=== PATIENT | male | born 1980 | race Caucasian/White ===

== ENCOUNTER 2017-06-27 12:45 | Emergency (ER) | payer OTHER ==
[2017-06-27 13:04] VITALS: BP 132/72; PULSE 89; RESP 20; TEMP 98.1; O2SAT 98
[2017-06-27] MEDS ORDERED: LIDOCAINE HCL 1% 50 ML VIAL INFIL ONE (13:15)
[2017-06-27] MEDS ORDERED: CEPH-460 PO (13:37)
[2017-06-27] MEDS ORDERED: BACT800T5 PO (13:37)
[2017-06-27] MEDS ORDERED: HYDR-3533 PO (13:37)
[2017-06-27] MEDS ORDERED: DICL75TA PO (13:37)
--- NOTE | 2017-06-27 13:43 | PD ---
HPI Chief Complaint: Skin Problem Time Seen by Provider: 13:02 Travel History International Travel<30 days: No Contact w/Intl Traveler<30days: No Traveled to known affect area: No History of Present Illness HPI 37-year-old male that presents to the ED for evaluation of abscess to the right arm. Per patient she's had this for a couple of weeks now. Per patient he try some Keflex for 3 days with no relief. Per patient is getting bigger. He comes here as his son is also being seen for a different complaint. Patient states that the pain is 6 out of 10. Patient states that he's had this before. No other medical issues. No allergies to medication. No history of MRSA. No IV drug abuse. No fevers chills or sweats. PFSH Social History Alcohol Use: No Tobacco Use: No Substance Use: No Allergies-Medications (Allergen,Severity, Reaction): Coded Allergies: No Known Allergies (Unverified , 06/27/17) Reported Meds & Prescriptions Reported Meds & Active Scripts Active Keflex (Cephalexin) 500 Mg Cap 500 Mg PO Q8H 10 Days Bactrim DS (Sulfamethoxazole-Trimethoprim) 800-160 Mg Tab 1 Tab PO BID Diclofenac Sodium DR (Diclofenac Sodium) 75 Mg Tabdr 75 Mg PO BID PRN Lortab (Hydrocodone-Acetaminophen) 5-325 Mg Tab 1 Tab PO Q6H PRN 10 Days Review of Systems Except as stated in HPI: all other systems reviewed are Neg Physical Exam Narrative GENERAL: SKIN: Warm and dry. HEAD: Atraumatic. Normocephalic. EYES: Pupils equal and round. No scleral icterus. No injection or drainage. ENT: No nasal bleeding or discharge. Mucous membranes pink and moist. NECK: Trachea midline. No JVD. CARDIOVASCULAR: Regular rate and rhythm. RESPIRATORY: No accessory muscle use. Clear to auscultation. Breath sounds equal bilaterally. GASTROINTESTINAL: Abdomen soft, non-tender, nondistended. Hepatic and splenic margins not palpable. MUSCULOSKELETAL: Extremities without clubbing, cyanosis, or edema. No obvious deformities. Full range of motion of the upper and lower extremities bilaterally. Patient has a 2 cm in diameter abscess to the ventral aspect of the right arm. Erythematous with purulence noted. 2+ pulses bilaterally. Neurovascular intact. Tender to touch. Warm to the touch. NEUROLOGICAL: Awake and alert. No obvious cranial nerve deficits. Motor grossly within normal limits. Five out of 5 muscle strength in the arms and legs. Normal speech. PSYCHIATRIC: Appropriate mood and affect; insight and judgment normal. Data Data Last Documented VS Vital Signs Date Time Temp Pulse Resp B/P (MAP) Pulse Ox O2 Delivery O2 Flow Rate FiO2 06/27/17 13:04 98.1 89 20 132/72 (92) 98 Orders Orders Wound Culture And Gram Stain (06/27/17 13:05) Wound Care (06/27/17 13:05) Lidocaine 1% Inj (50 Ml) (Xylocaine 1% I (06/27/17 13:15) Acetamin-Hydrocod 325-5 Mg ([place] 5-325 (06/27/17 13:45) Sulfamet-Trimeth Ds 800-160 Mg (Bactrim (06/27/17 13:45) MDM Medical Decision Making Medical Screen Exam Complete: Yes Emergency Medical Condition: Yes Medical Record Reviewed: Yes Differential Diagnosis Abscesses versus cellulitis versus skin infection Narrative Course 37-year-old male that presents to the ED for evaluation of abscess. Patient was properly examined and was found to have signs and symptoms consistent with abscess. Recommendations for I&D. Patient is with this. Please refer to my procedure note. Culture was taken. About 5 cc of fluid were taken out. Patient will be given prescription of Bactrim, diclofenac sodium, Lortab, Keflex. Patient was given first dose of Bactrim and Lortab here. Wound care was endorsed. Follow with PCP. Packing to be removed in 2 days. See ED if worsening symptoms. Procedures Procedure Narrative After the risks and benefits were discussed the following procedure was performed: INCISION AND DRAINAGE OF ABSCESS: The area was prepped and was sterilely draped. A subcutaneous wheal of 1 % Xylocaine with a total number 5 mL was used to anesthetize the area. The area was properly anesthetized. A number 11 scalpel was used to make a 1 -cm incision across the area of the abscess. Cultures were obtained. The abscess was drained an irrigated with normal saline. Quarter inch iodoform packing was placed in the wound. Sterile dressing applied. Patient advised to have packing removed in two days. Diagnosis Primary Impression: Abscess Patient Instructions: General Instructions, Narcotic given in the ED Additional Instructions: Take medications as prescribed. Follow-up with PCP. See ED for any worsening symptoms. Do not drink or drive while taking pain medication. Apply ice or heat as needed for pain. Recheck in 2 days to get packing removed Med/Other Pt SpecificInfo: Prescription(s) given Scripts Cephalexin (Keflex) 500 Mg Cap 500 MG PO Q8H for Infection for 10 Days, #30 CAP 0 Refills Prov: Roshan Morales MD 06/27/17 Sulfamethoxazole-Trimethoprim (Bactrim DS) 800-160 Mg Tab 1 TAB PO BID for Infection, #20 TAB 0 Refills Prov: Roshan Morales MD 06/27/[address] (Diclofenac Sodium DR) 75 Mg Tabdr 75 MG PO BID Y for PAIN SCALE 1 TO 10, #20 TAB 0 Refills Prov: Roshan Morales MD 06/27/17 Hydrocodone-Acetaminophen (Lortab) 5-325 Mg Tab 1 TAB PO Q6H Y for PAIN for 10 Days, TAB 0 Refills Prov: Roshan Morales MD 06/27/17 Disposition: 01 DISCHARGE HOME Condition: Stable Anton Roach Jun 27, 2017 13:43
[2017-06-27] MEDS ORDERED: SULFAMETHOXAZOLE-TRIMETHOPRIM DS 800-160 MG TAB PO ONE (13:45)
[2017-06-27] MEDS ORDERED: ACETAMINOPHEN/HYDROcodone 325 MG/5 MG TAB PO ONE (13:45)
== END 2017-06-27 14:15 | disposition home or self-care (01) ==
LOC: PHEFT 12:45
DX: L02.413 Cutaneous abscess of right upper limb (principal)
CPT/HCPCS: 10061; 86403; 87070; 87186; 87205